=== PATIENT | female | born 1945 | race Caucasian/White ===

== ENCOUNTER 2019-07-23 14:34 | Emergency (ER) | payer MEDICARE, SELFPAY ==
[2019-07-23 14:48] VITALS: BP 108/70; PULSE 92; RESP 16; TEMP 36.5; O2SAT 98
--- NOTE | 2019-07-23 15:14 | ED.GENADUL_ITS ---
Discharge Plan Disposition Patient Disposition: HOME Condition: Stable Discharge Details Chief Complaint: GenMedical Clinical Impression: Dehydration Primary Care Provider: Shira,Local ED Provider: Jose Staples Home Meds and New Rx's Prescriptions: Continued multivitamin Tablet 1 tab PO DAILY RF: 0 ondansetron HCl [Zofran] 8 mg Tablet 8 mg PO PRNRF: 0 lisinopril 30 mg Tablet 30 mg PO DAILY RF: 0 montelukast 10 mg Tablet 10 mg PO DAILY RF: 0 estradiol [Vivelle-Dot] 0.025 mg/24 hr Patch Semiweekly .EACH SATURDAY RF: 0 fluticasone furoate 27.5 mcg/actuation [place],Suspension INTRANASAL RF: 0 Votrient 200 mg Tablet 200 mg PO DAILY RF: 0 Vitamin B 3 1,000 mg PO DAILY RF: 0 Discharge Instructions Instructions: Dehydration (ED) Medical Decision Making 73 yo female with hx of htn, renal cancer with mets on chemo per pt who is here travelling from [place] and needs weekly IVF for hydration and would like that done. She states she feels weak and dehydrated as she does when she gets dehydrated. She denies sob, chest jeffry, severe headaches, fevers, chills. She is declining any lab work or other interventions at this time and understands I can't evaluate for joann or neutropenia without this and still declines, has capacity to make her own decisions. Will give IV fluids at her request and reassess. pt remains stable and feels better after fluids and has no complaints, still declining lab work at this time. advised return if worsening and f/u with oncologist when she returns home in 2 weeks Differential Diagnosis dehydration, chemotherapy side effects HPI General Mode of arrival: ambulatory . Date/Time Provider Initiated Documentation: 07/23/19 14:53 . Limitations to Documentation: no limitations . Information obtained by: patient . History of Present Illness 73 year old F presents to the emergency department with the chief complaint of dehydration, No relieving factors improve symptom(s), No exacerbating factors reported . Patient did receive the following treatments prior to arrival, none Related Data Home Medications Medication Instructions Recorded Confirmed Vitamin B 3 1,000 mg PO DAILY 07/23/19 Votrient 200 mg PO DAILY 07/23/19 07/23/19 estradiol [Vivelle-Dot] .EACH Saturday07/23/19 fluticasone furoate INTRANASAL 07/23/19 lisinopril 30 mg PO DAILY 07/23/19 07/23/19 montelukast 10 mg PO DAILY 07/23/19 07/23/19 multivitamin 1 tab PO DAILY 07/23/19 07/23/19 ondansetron HCl [Zofran] 8 mg PO PRN 07/23/19 Allergies Allergy/AdvReac Type Severity Reaction Status Date / Time pregabalin [From Lyrica] Allergy Severe Unverified 07/23/19 14:54 Penicillins Allergy Intermediate Hives Unverified 07/23/19 14:53 codeine Allergy Unverified 07/23/19 14:53 General Stated Complaint: GenMedical ALVA: 3 Review of Systems Review of Systems All systems reviewed & are unremarkable except as noted in HPI and below Constitutional Denies chills, Denies fever(s) and Denies weakness Cardiovascular Denies chest pain and Denies dyspnea Respiratory Denies cough and Denies dyspnea Gastrointestinal Denies abdominal pain, Denies nausea and Denies vomiting Musculoskeletal Denies joint swelling Neurologic Denies weakness Endocrine Denies heat intolerance PFSH Social History Smoking/Tobacco Use Status: Never Substance use type: does not use Exam Const General: no acute distress Orientation: alert HENMT Head: normal to inspection Ears: external ears normal General nose exam: external nose normal Mouth: moist mucous membranes Eyes General: appearance normal, both eyes and all related structures Neck Neck: normal visual inspection Resp Effort & Inspection: normal respiratory effort and able to speak in complete sentences Cardio Rate: regular rate Skin General skin exam: no rashes or lesions noted Neuro General: alert and oriented x3 Extrem General: normal to inspection Psych Mental Status: mental status grossly normal Course Vital Signs Temperature 36.5 C 07/23/19 14:48 Pulse 92 H 07/23/19 14:48 Respiratory Rate 16 07/23/19 14:48 Blood Pressure 108/70 07/23/19 14:48 Pulse Oximetry 98 07/23/19 14:48 Temperature 36.5 C 07/23/19 14:48 Temperature Source Skin 07/23/19 14:48 Pulse 92 H 07/23/19 14:48 Respiratory Rate 16 07/23/19 14:48 Respiratory Effort Non-Labored 07/23/19 14:48 Blood Pressure 108/70 07/23/19 14:48 Blood Pressure Position Sitting 07/23/19 14:48 Pulse Oximetry 98 07/23/19 14:48 Pain Level 0 07/23/19 14:48
[2019-07-23] MEDS: Normal Saline 500 ML IV (15:34)
[2019-07-23 15:51] VITALS: RESP 16
[2019-07-23 17:28] VITALS: BP 110/60; PULSE 86; RESP 16; TEMP 36.5
== END 2019-07-23 17:28 | disposition home or self-care (01) ==
PROVIDERS: Emergency Provider Emergency Medicine
DX: E86.0 Dehydration (principal); C64.9 Malignant neoplasm of unspecified kidney, except renal pelvis; C78.7 Secondary malignant neoplasm of liver and intrahepatic bile duct; Z79.899 Other long term (current) drug therapy; I10 Essential (primary) hypertension; Z53.29 Procedure and treatment not carried out because of patient's decision for other reasons
CPT/HCPCS: 96360; 96361; 99284; 99283